=== PATIENT | male | born 1965 | race African-American/Black ===

== ENCOUNTER 2021-12-17 07:51 | Day surgery (SDC) | payer OTHER ==
[2021-12-17 08:32] VITALS: BP 130/78; TEMP 98.1
[2021-12-17 08:50] LABS: #Eosinphils 0.1 10x3/uL (0.0-0.5); #Monocytes 0.4 10x3/uL (0.0-1.1); %Basophils 0.8 % (0.0-2.0); %Eosinophils 2.3 % (0.0-6.0); %Lymphocytes 37.8 % (18.0-47.0); %Monocytes 10.1 % (0.0-10.0); Hemoglobin 12.6 g/dL (13.5-17.5); Mean Corpuscular HGB CONC 33.1 g/dL (32.0-36.0); Mean Corpuscular Hemoglobin 33.8 pg (27.0-33.0); Mean Corpuscular Volume 102.1 fl (81.2-95.1); Mean Platelet Volume 9.3 fl (7.4-10.4); Platelet Count 292 10x3/uL (150-450); RBC Distribution Width 14.2 % (11.5-14.5); Red Blood Cell (RBC) Count 3.73 10x6/uL (4.32-5.72)
[2021-12-17 08:59] LABS: PTT 25.2 sec (22.0-33.0); Prothrombin Time 11.2 sec (9.5-12.1)
[2021-12-17] MEDS ORDERED: Sodium Bicarbonate 2.5 MEQ/5 ML VIAL ONE (09:27)
[2021-12-17] MEDS ORDERED: Lidocaine 1% PF 5 ML VIAL ONE ×2 (09:27)
== END 2021-12-17 10:00 | disposition home or self-care (01) ==
LOC: CSHULT 07:51
PROVIDERS: ATTEND Physician Assistant Medical
DX: R18.8 Other ascites (principal); R74.8 Abnormal levels of other serum enzymes
CPT/HCPCS: 49083; 85025; 85610; 85730